=== PATIENT | female | born 1995 | race Hispanic/Latino ===

== ENCOUNTER 2018-06-27 11:48 | Emergency (ER) | payer SELFPAY ==
[~2018-06-27] VITALS: Ht 147.3 cm; Wt 39.0 kg
[~2018-06-27 11:48] MED LIST: AMOXICILLIN500 MG OR; AMOXICILLIN500 MG PO; BACTRIM DS1 TAB PO; BACTROBAN2 % EX; CEPHALEXIN500 MG PO; NO; ONDANSETRON4 MG PO; PYRIDIUM200 MG PO; ZITHROMAX200 MG/5 M PO; ZOFRAN ODT4 MG OR
[2018-06-27 13:27] LABS: HEMATOCRIT 43.4 % (37.0-47.0); HEMOGLOBIN 14.2 g/dl (12.0-16.0); IMMATURE GRANULOCYTES 0.2 % (0.0-5.0); MEAN CELL VOLUME 91.6 fL CALC (80.0-100.0); MEAN CORPUSCULAR HGB CONC 32.7 g/L CALC (32.0-36.0); NEUT# 3.1 thou/uL (2.00-7.15); RED BLOOD COUNT 4.74 mill/uL (4.20-5.60); RED CELL DISTRI WIDTH 12.6 % (11.5-15.5)
[2018-06-27 13:38] LABS: ALBUMIN 4.2 g/dL (3.2-5.0); ALKALINE PHOSPHATASE 59 u/l (38-126); ANION GAP 13 (6-22 (CALC)); BILIRUBIN, TOTAL 1.2 mg/dL (0.0-1.4); BUN 14 mg/dL (7-17); BUN/CREATININE RATIO 21 (12-20 (CALC)); CARBON DIOXIDE 26 mmol/l (22-30); CHLORIDE 103 mmol/l (95-108); CREATININE 0.6 mg/dL (0.5-1.0); GFR > 60 ML/MIN (>=60 (CALC)); GFR FOR AFR.AMER. > 60 ML/MIN (>=60 (CALC)); SGOT/AST 22 u/l (14-36); SODIUM 138 mmol/l (137-146); TOTAL PROTEIN 7.3 g/dL (6.3-8.2)
[2018-06-27 14:53] VITALS: BP 100/53
== END 2018-06-27 14:59 | disposition home or self-care (01) | DRG 312 ==
LOC: ED 11:48
PROVIDERS: Emergency Medicine
DX: R55 Syncope and collapse (principal)

== ENCOUNTER 2018-07-19 21:00 | Emergency (ER) | payer SELFPAY ==
[~2018-07-19] VITALS: Ht 147.3 cm; Wt 36.3 kg
[2018-07-19 22:05] LABS: HEMOGLOBIN 13.3 g/dl (12.0-16.0); IMMATURE GRANULOCYTES 0.3 % (0.0-5.0); MEAN CELL VOLUME 87.8 fL CALC (80.0-100.0); MEAN CORPUSCULAR HGB CONC 34.1 g/L CALC (32.0-36.0); NEUT# 2.28 thou/uL (2.00-7.15); RED BLOOD COUNT 4.44 mill/uL (4.20-5.60); RED CELL DISTRI WIDTH 12.7 % (11.5-15.5)
[2018-07-19 22:19] LABS: ALBUMIN 3.8 g/dL (3.2-5.0); ALKALINE PHOSPHATASE 62 u/l (38-126); ANION GAP 14 (6-22 (CALC)); BILIRUBIN, TOTAL 1.1 mg/dL (0.0-1.4); BUN 13 mg/dL (7-17); BUN/CREATININE RATIO 22 (12-20 (CALC)); CARBON DIOXIDE 23 mmol/l (22-30); CHLORIDE 104 mmol/l (95-108); CREATININE 0.6 mg/dL (0.5-1.0); GFR > 60 ML/MIN (>=60 (CALC)); GFR FOR AFR.AMER. > 60 ML/MIN (>=60 (CALC)); POTASSIUM 3.4 mmol/l (3.5-5.1); SGOT/AST 21 u/l (14-36); SODIUM 138 mmol/l (137-146); TOTAL PROTEIN 6.6 g/dL (6.3-8.2)
[2018-07-19 22:33] LABS: URINE BLOOD DIPSTICK LARGE (NEGATIVE); URINE COLOR YELLOW; URINE GLUCOSE - DIPSTICK NEGATIVE (NEGATIVE); URINE KETONE 40 mg/dL (NEGATIVE); URINE LEUK ESTERASE TRACE (NEGATIVE); URINE NITRITE - DIPSTICK NEGATIVE (Negative); URINE PROTEIN - DIPSTICK TRACE mg/dL (NEG-TRACE); URINE UROBILINOGEN - DIPSTICK 0.2 E.U./dL (0.2)
[2018-07-19 22:41] LABS: COCAINE NEGATIVE (NEGATIVE); TETRAHYDROCANNABIONOL POSITIVE (NEGATIVE)
[2018-07-19 22:42] LABS: BARBITURATES NEGATIVE (NEGATIVE); METHADONE NEGATIVE (NEGATIVE); OXCYCODONE NEGATIVE (NEGATIVE); TRICYLIC ANTIDEPRESSANTS NEGATIVE (NEGATIVE); URINE BILIRUBIN - DIPSTICK SMALL (NEGATIVE)
[2018-07-19 22:43] LABS: URINE SQUAMOUS EPITHELIAL CELL MANY EPI/hpf (0-FEW)
[2018-07-19 22:44] LABS: URINE BACTERIA FEW hpf; URINE MUCUS MANY hpf (NONE-FEW)
[2018-07-19] MEDS ORDERED: DOXYCYCL HYC100 MG PO (23:33)
[2018-07-19 23:51] VITALS: BP 96/65
== END 2018-07-19 23:58 | disposition home or self-care (01) | DRG 195 ==
LOC: ED 21:00
PROVIDERS: Family Medicine
DX: J18.9 Pneumonia, unspecified organism (principal)

== ENCOUNTER 2020-08-28 22:20 | Emergency (ER) | payer SELFPAY ==
[~2020-08-28] VITALS: Ht 147.3 cm; Wt 45.5 kg
[~2020-08-28 22:20] MED LIST changes: +DOXYCYCL HYC100 MG PO
[2020-08-28] MEDS ORDERED: BACTRIM DS1 TAB PO (22:36)
[2020-08-28 23:46] VITALS: BP 110/64
== END 2020-08-28 23:46 | disposition home or self-care (01) | DRG 603 ==
LOC: ED 22:20
PROC: 0X940ZZ Drainage of Right Axilla, Open Approach (ICD-10-PCS; principal; 2020-08-28)
DX: L02.411 Cutaneous abscess of right axilla (principal)

== ENCOUNTER 2020-08-30 18:08 | Emergency (ER) | payer SELFPAY ==
[~2020-08-30] VITALS: Ht 147.3 cm; Wt 45.0 kg
[2020-08-30 19:18] LABS: HEMATOCRIT 43.2 % (37.0-47.0); IMMATURE GRANULOCYTES 0.4 % (0.0-5.0); MEAN CORPUSCULAR HGB 29.2 pG CALC (26.0-32.0); MEAN CORPUSCULAR HGB CONC 32.4 g/dL CAL (32.0-36.0); NEUT# 3.16 thou/uL (2.00-7.15); RED BLOOD COUNT 4.8 mill/uL (4.20-5.60); RED CELL DISTRI WIDTH 12.5 % (11.5-15.5)
[2020-08-30 19:26] LABS: ALKALINE PHOSPHATASE 76 u/l (38-126); ANION GAP 15 (6-22 (CALC)); BILIRUBIN, TOTAL 0.7 mg/dL (0.0-1.4); BUN 15 mg/dL (7-17); BUN/CREATININE RATIO 15 (12-20 (CALC)); CARBON DIOXIDE 25 mmol/l (22-30); CHLORIDE 102 mmol/l (95-108); GFR > 60 ML/MIN (>=60 (CALC)); GFR FOR AFR.AMER. > 60 ML/MIN (>=60 (CALC)); POTASSIUM 3.6 mmol/l (3.5-5.1); SGOT/AST 26 u/l (14-36); SODIUM 138 mmol/l (137-146)
[2020-08-30 19:27] LABS: URINE BILIRUBIN - DIPSTICK NEGATIVE (NEGATIVE); URINE BLOOD DIPSTICK SMALL (NEGATIVE); URINE COLOR YELLOW; URINE GLUCOSE - DIPSTICK NEGATIVE (NEGATIVE); URINE KETONE 15 mg/dL (NEGATIVE); URINE LEUK ESTERASE NEGATIVE (NEGATIVE); URINE NITRITE - DIPSTICK NEGATIVE (Negative); URINE PROTEIN - DIPSTICK NEGATIVE (NEG-TRACE); URINE SPECIFIC GRAVITY >=1.030; URINE UROBILINOGEN - DIPSTICK 0.2 E.U./dL (0.2)
[2020-08-30 19:30] LABS: ALBUMIN 4.7 g/dL (3.2-5.0); TOTAL PROTEIN 8.1 g/dL (6.3-8.2)
[2020-08-30 19:38] LABS: URINE BACTERIA FEW hpf; URINE MUCUS FEW hpf (NONE-FEW); URINE SQUAMOUS EPITHELIAL CELL FEW EPI/hpf (0-FEW)
[2020-08-30] MEDS ORDERED: ZOFRAN4 MG/TAB PO (19:53)
[2020-08-30 20:54] VITALS: BP 113/71
== END 2020-08-30 20:52 | disposition home or self-care (01) | DRG 951 ==
LOC: ED 18:08
DX: Z48.01 Encounter for change or removal of surgical wound dressing (principal); B34.9 Viral infection, unspecified; F41.9 Anxiety disorder, unspecified; Z20.822 Contact with and (suspected) exposure to COVID-19

== ENCOUNTER 2020-09-01 20:44 | Emergency (ER) | payer SELFPAY ==
[~2020-09-01] VITALS: Ht 147.3 cm; Wt 45.0 kg
[~2020-09-01 20:44] MED LIST changes: +ZOFRAN4 MG/TAB PO
[2020-09-01 22:23] VITALS: BP 97/62
== END 2020-09-01 22:33 | disposition home or self-care (01) | DRG 951 ==
LOC: ED 20:44
DX: Z48.01 Encounter for change or removal of surgical wound dressing (principal)

== ENCOUNTER 2020-11-19 11:55 | Emergency (ER) | payer MEDICAID ==
[~2020-11-19] VITALS: Ht 147.3 cm; Wt 45.0 kg
[2020-11-19 12:30] LABS: URINE BILIRUBIN - DIPSTICK NEGATIVE (NEGATIVE); URINE BLOOD DIPSTICK TRACE-LYSED (NEGATIVE); URINE GLUCOSE - DIPSTICK NEGATIVE (NEGATIVE); URINE KETONE >=80 mg/dL (NEGATIVE); URINE LEUK ESTERASE NEGATIVE (NEGATIVE); URINE PH 5.5 (4.5-8.0); URINE PROTEIN - DIPSTICK 30 mg/dL (NEG-TRACE); URINE SPECIFIC GRAVITY >=1.030; URINE UROBILINOGEN - DIPSTICK 0.2 E.U./dL (0.2)
[2020-11-19 12:31] LABS: URINE COLOR DK. YELLOW; URINE NITRITE - DIPSTICK NEGATIVE (Negative)
[2020-11-19 12:32] LABS: URINE EPITHELIAL CELLS MODERATE EPI/hpf (0-FEW); URINE MUCUS FEW hpf (NONE-FEW)
[2020-11-19 13:08] LABS: HEMATOCRIT 41.7 % (37.0-47.0); HEMOGLOBIN 13.4 g/dl (12.0-16.0); IMMATURE GRANULOCYTES 0.4 % (0.0-5.0); MEAN CELL VOLUME 89.3 fL CALC (80.0-100.0); MEAN CORPUSCULAR HGB 28.7 pG CALC (26.0-32.0); MEAN CORPUSCULAR HGB CONC 32.1 g/dL CAL (32.0-36.0); NEUT# 5.88 thou/uL (2.00-7.15); RED BLOOD COUNT 4.67 mill/uL (4.20-5.60); RED CELL DISTRI WIDTH 12.7 % (11.5-15.5)
[2020-11-19 13:29] LABS: ALBUMIN 4.5 g/dL (3.2-5.0); ALKALINE PHOSPHATASE 65 u/l (38-126); ANION GAP 13 (6-22 (CALC)); BUN 12 mg/dL (7-17); BUN/CREATININE RATIO 21 (12-20 (CALC)); CARBON DIOXIDE 24 mmol/l (22-30); CHLORIDE 101 mmol/l (95-108); CREATININE 0.6 mg/dL (0.5-1.0); GFR > 60 ML/MIN (>=60 (CALC)); GFR FOR AFR.AMER. > 60 ML/MIN (>=60 (CALC)); LIPASE 40 u/l (23-300); SGOT/AST 36 u/l (14-36); SODIUM 134 mmol/l (137-146); TOTAL PROTEIN 8.2 g/dL (6.3-8.2)
[2020-11-19 13:35] LABS: BILIRUBIN, TOTAL 1.2 mg/dL (0.0-1.4)
[2020-11-19 14:45] LABS: BETA-HCG, QUANT(RESULT NUMBER) 30377 mIU/mL
[2020-11-19] MEDS ORDERED: ONDANSETRON4 MG/5 M1 PO (15:51)
[2020-11-19] MEDS ORDERED: DICLEGIS1 TAB PO (15:53)
[2020-11-19 16:05] VITALS: BP 112/77
== END 2020-11-19 16:10 | disposition home or self-care (01) | DRG 833 ==
LOC: ED 11:55
DX: O21.9 Vomiting of pregnancy, unspecified (principal); Z3A.00 Weeks of gestation of pregnancy not specified

== ENCOUNTER 2020-12-18 01:18 | Emergency (ER) | payer MEDICAID ==
[~2020-12-18] VITALS: Ht 147.3 cm; Wt 47.7 kg
[~2020-12-18 01:18] MED LIST changes: +DICLEGIS1 TAB PO; +ONDANSETRON4 MG/5 M1 PO
[2020-12-18 02:16] LABS: URINE BILIRUBIN - DIPSTICK NEGATIVE (NEGATIVE); URINE BLOOD DIPSTICK LARGE (NEGATIVE); URINE COLOR YELLOW; URINE GLUCOSE - DIPSTICK NEGATIVE (NEGATIVE); URINE KETONE NEGATIVE (NEGATIVE); URINE LEUK ESTERASE NEGATIVE (NEGATIVE); URINE PROTEIN - DIPSTICK NEGATIVE (NEG-TRACE); URINE SPECIFIC GRAVITY >=1.030; URINE UROBILINOGEN - DIPSTICK 0.2 E.U./dL (0.2)
[2020-12-18 02:16] LABS: HEMATOCRIT 40.8 % (37.0-47.0); HEMOGLOBIN 13.1 g/dl (12.0-16.0); IMMATURE GRANULOCYTES 0.4 % (0.0-5.0); MEAN CELL VOLUME 91.3 fL CALC (80.0-100.0); MEAN CORPUSCULAR HGB 29.3 pG CALC (26.0-32.0); MEAN CORPUSCULAR HGB CONC 32.1 g/dL CAL (32.0-36.0); NEUT# 6.91 thou/uL (2.00-7.15); RED BLOOD COUNT 4.47 mill/uL (4.20-5.60); RED CELL DISTRI WIDTH 13.2 % (11.5-15.5)
[2020-12-18 02:24] LABS: URINE NITRITE - DIPSTICK NEGATIVE (Negative)
[2020-12-18 02:26] LABS: ALBUMIN 4.3 g/dL (3.2-5.0); ALKALINE PHOSPHATASE 58 u/l (38-126); AMYLASE 76 u/l (30-110); ANION GAP 13 (6-22 (CALC)); BUN 15 mg/dL (7-17); BUN/CREATININE RATIO 26 (12-20 (CALC)); CARBON DIOXIDE 27 mmol/l (22-30); CHLORIDE 102 mmol/l (95-108); CREATININE 0.6 mg/dL (0.5-1.0); GFR > 60 ML/MIN (>=60 (CALC)); GFR FOR AFR.AMER. > 60 ML/MIN (>=60 (CALC)); LIPASE 82 u/l (23-300); POTASSIUM 3.8 mmol/l (3.5-5.1); SGOT/AST 39 u/l (14-36); SODIUM 138 mmol/l (137-146); TOTAL PROTEIN 7.3 g/dL (6.3-8.2)
[2020-12-18 02:28] LABS: BILIRUBIN, TOTAL 0.4 mg/dL (0.0-1.4)
[2020-12-18 02:30] LABS: URINE BACTERIA FEW hpf; URINE SQUAMOUS EPITHELIAL CELL FEW EPI/hpf (0-FEW)
[2020-12-18 02:42] LABS: BETA-HCG, QUANT(RESULT NUMBER) 1847 mIU/mL
[2020-12-18] MEDS ORDERED: PROTONIX40 MG PO (03:33)
[2020-12-18 03:45] VITALS: BP 104/62
== END 2020-12-18 03:46 | disposition home or self-care (01) ==
LOC: ED 01:18
PROVIDERS: Family Medicine
DX: R10.12 Left upper quadrant pain (principal); R10.13 Epigastric pain; F32.9 Major depressive disorder, single episode, unspecified; F41.9 Anxiety disorder, unspecified

== ENCOUNTER 2021-01-17 22:35 | Emergency (ER) | payer MEDICAID ==
[~2021-01-17] VITALS: Ht 147.3 cm; Wt 47.7 kg
[~2021-01-17 22:35] MED LIST changes: +PROTONIX40 MG PO
[2021-01-18] MEDS ORDERED: VOLTAREN75 MG PO (00:11)
[2021-01-18 00:40] VITALS: BP 118/64
== END 2021-01-18 00:40 | disposition home or self-care (01) ==
LOC: ED 22:35
DX: S53.401A Unspecified sprain of right elbow, initial encounter (principal); F32.9 Major depressive disorder, single episode, unspecified; F41.9 Anxiety disorder, unspecified; W18.39XA Other fall on same level, initial encounter; Y93.51 Activity, roller skating (inline) and skateboarding; Y92.331 Roller skating rink as the place of occurrence of the external cause

== ENCOUNTER 2021-06-10 08:08 | Emergency (ER) | payer MEDICAID ==
[~2021-06-10] VITALS: Ht 147.3 cm; Wt 46.8 kg
[~2021-06-10 08:08] MED LIST changes: +VOLTAREN75 MG PO
[2021-06-10] MEDS ORDERED: PENICILLN VK500 MG PO (09:10)
[2021-06-10 09:24] VITALS: BP 102/55
== END 2021-06-10 09:25 | disposition home or self-care (01) ==
LOC: ED 08:08
DX: J02.9 Acute pharyngitis, unspecified (principal); F32.A Depression, unspecified; F41.9 Anxiety disorder, unspecified; Z20.822 Contact with and (suspected) exposure to COVID-19

== ENCOUNTER 2022-01-02 10:33 | Emergency (ER) | payer MEDICAID ==
[~2022-01-02] VITALS: Ht 147.3 cm; Wt 53.0 kg
[~2022-01-02 10:33] MED LIST changes: +PENICILLN VK500 MG PO
[2022-01-02 13:10] LABS: HEMATOCRIT 42.1 % (37.0-47.0); HEMOGLOBIN 13.5 g/dl (12.0-16.0); MEAN CELL VOLUME 89.4 fL CALC (80.0-100.0); MEAN CORPUSCULAR HGB 28.7 pG CALC (26.0-32.0); MEAN CORPUSCULAR HGB CONC 32.1 g/dL CAL (32.0-36.0); NEUT# 1.96 thou/uL (2.00-7.15); RED BLOOD COUNT 4.71 mill/uL (4.20-5.60); RED CELL DISTRI WIDTH 12.8 % (11.5-15.5)
[2022-01-02 13:20] LABS: ALBUMIN 4.4 g/dL (3.2-5.0); ALKALINE PHOSPHATASE 67 u/l (38-126); BUN 13 mg/dL (7-17); BUN/CREATININE RATIO 21 (12-20 (CALC)); CHLORIDE 104 mmol/l (95-108); CREATININE 0.6 mg/dL (0.5-1.0); GFR FOR AFR.AMER. > 60 ML/MIN (>=60 (CALC)); GFR OTHER RACES > 60 ML/MIN (>=60 (CALC)); POTASSIUM 3.8 mmol/l (3.5-5.1); SGOT/AST 22 u/l (14-36); SODIUM 136 mmol/l (137-146); TOTAL PROTEIN 7.4 g/dL (6.3-8.2)
[2022-01-02 13:24] LABS: ANION GAP 15 (6-22 (CALC)); BILIRUBIN, TOTAL 0.8 mg/dL (0.0-1.4); CARBON DIOXIDE 21 mmol/l (22-30)
[2022-01-02 14:29] LABS: URINE BILIRUBIN - DIPSTICK NEGATIVE (NEGATIVE); URINE BLOOD DIPSTICK MODERATE (NEGATIVE); URINE COLOR YELLOW; URINE GLUCOSE - DIPSTICK NEGATIVE (NEGATIVE); URINE KETONE >=80 mg/dL (NEGATIVE); URINE LEUK ESTERASE NEGATIVE (NEGATIVE); URINE PH 6.5 (4.5-8.0); URINE PROTEIN - DIPSTICK NEGATIVE (NEG-TRACE); URINE SPECIFIC GRAVITY >=1.030; URINE UROBILINOGEN - DIPSTICK 0.2 E.U./dL (0.2)
[2022-01-02 14:32] LABS: URINE NITRITE - DIPSTICK NEGATIVE (Negative)
[2022-01-02 14:38] LABS: URINE SQUAMOUS EPITHELIAL CELL FEW EPI/hpf (0-FEW); URINE WBC 0-2 WBC/hpf (0-5)
[2022-01-02] MEDS ORDERED: PAXLOVID PO (14:53)
[2022-01-02 15:02] VITALS: BP 113/70
== END 2022-01-02 15:32 | disposition home or self-care (01) ==
LOC: ED 10:33
PROVIDERS: Emergency Medicine
DX: U07.1 COVID-19 (principal); R50.9 Fever, unspecified; M79.10 Myalgia, unspecified site; R05.9 Cough, unspecified; J02.9 Acute pharyngitis, unspecified; M41.9 Scoliosis, unspecified; F32.A Depression, unspecified; F41.9 Anxiety disorder, unspecified

== ENCOUNTER 2023-01-12 12:01 | Emergency (ER) | payer MEDICAID ==
[2023-01-12] VITALS (8 sets, daily range): BP systolic 95–112; BP diastolic 67–82
[~2023-01-12] VITALS: Ht 147.3 cm; Wt 54.5 kg
[~2023-01-12 12:01] MED LIST changes: +PAXLOVID PO
[2023-01-12] MEDS ORDERED: PENICILLN VK500 MG PO (14:13)
== END 2023-01-12 14:31 | disposition home or self-care (01) ==
LOC: ED 12:01
DX: J02.9 Acute pharyngitis, unspecified (principal); F41.9 Anxiety disorder, unspecified; F32.A Depression, unspecified; Z20.822 Contact with and (suspected) exposure to COVID-19